=== PATIENT | female | born 2000 | race Hispanic/Latino ===

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

== ENCOUNTER 2021-02-13 08:11 | Emergency (ER) | payer OTHER ==
[~2021-02-13] VITALS: Ht 154.9 cm; Wt 50.6 kg
[~2021-02-13 08:11] MED LIST changes: +FLON1SPR NARES
[2021-02-13 09:43] LABS: BASO # 0.1 10^3/uL (0.0-0.2); BASO % 0.5 % (0.0-1.0); EOS % 0.3 % (0.0-3.0); HEMATOCRIT 42.8 % (36.0-47.0); LYMPH # 1.3 10^3/uL (1.5-5.0); LYMPH % 10.8 % (24.0-44.0); MEAN CORPUSCULAR HEMOGLOBIN 27.6 pg (27.0-33.0); MEAN CORPUSCULAR HGB CONC 32.7 g/dl (32.0-36.5); MEAN CORPUSCULAR VOLUME 84.4 fl (80.0-96.0); MONO % 8.3 % (2.0-8.0); NEUTROPHILS # 9.6 10^3/uL (1.5-8.5); NEUTROPHILS % 79.8 % (36.0-66.0); PLATELET COUNT, AUTOMATED 307 10^3/uL (150-450); RED BLOOD COUNT 5.07 10^6/uL (4.00-5.40)
[2021-02-13 10:07] LABS: ALBUMIN 3.7 GM/DL (3.2-5.2); BILIRUBIN,DIRECT 0.1 MG/DL (0.0-0.2); BILIRUBIN,TOTAL 0.4 MG/DL (0.2-1.0)
[2021-02-13 11:48] LABS: GC DNA AMPLIFICATION NEGATIVE (NEGATIVE)
--- NOTE | 2021-02-13 12:15 | REP ---
INDICATION: pelvic pain. COMPARISON: None. TECHNIQUE: Transabdominal and transvaginal scanning performed. FINDINGS: Uterine dimensions are 8.0 x 3.3 x 4.2 cm. Endometrial echo is 5 mm in AP dimension and centrally placed. The bladder measures 6.1 x 8.2 x 3.5cm. The right ovary has dimensions of 3.0 x 1.6 x 2.7 cm. It's Doppler flow is normal with a resistive index of 0.63. The left ovary dimensions are 2.6 x 1.8 x 2.1 cm. It's Doppler flow was normal with resistive index of 0.64. A dominant follicle in the right ovary measures 1.5 x 1.4 x 1.0 cm. There is mild free fluid adjacent to the right ovary and in the posterior cul-de-sac. IMPRESSION: Dominant follicle right ovary with a maximum diameter of 1.5 cm. Mild adjacent free fluid. No torsion. <Electronically signed by Kwasi Dotson > 02/13/21 [id number]
[2021-02-13] MEDS ORDERED: NITR1CAP11 PO (12:19)
[2021-02-13 12:51] VITALS: BP 111/66
== END 2021-02-13 13:03 | disposition home or self-care (01) ==
LOC: M ED 08:11
DX: R10.2 Pelvic and perineal pain (principal); N39.0 Urinary tract infection, site not specified; N83.01 Follicular cyst of right ovary; R93.5 Abnormal findings on diagnostic imaging of other abdominal regions, including retroperitoneum; Z86.19 Personal history of other infectious and parasitic diseases